=== PATIENT | female | born 1995 | race African-American/Black ===

== ENCOUNTER 2021-05-10 20:46 | Emergency (ER) | payer OTHER, SELFPAY ==
--- NOTE | ~2021-05-10 | US_ITS ---
EXAMINATION: US OB <= 14 weeks fetus DATE: 05/11/2021 00:33 INDICATION: Vaginal bleeding during first trimester . TECHNIQUE: Real-time pelvic ultrasound utilizing transabdominal probe was performed. The johann sumner radiologist was not present for the study. COMPARISON: None. FINDINGS: The uterus measures 10.8 x 8.5 x 7.5 cm. There is an intrauterine gestational sac. A yolk sac and fe carrington pole are identified. The crown rump length measures 3.7 cm, which correlates with an estimated ge stational age of 10 weeks and 4 days. heart motion is identified measuring 163 beats per minute (bpm) by M-mode Doppler. The right ovary measures 2.7 x 2.6 x 1.9 cm. The left ovary measures 2.7 x 2.2 x 1.7 cm. Stricture fl ow identified in both ovaries on color Doppler. There is no free fluid in the pelvis. IMPRESSION: 1. Single living fetus with heart of 163 bpm. 2. Gestational age by ultrasound of 10 weeks 4 day(s) +/- 7 day(s) with ultrasound estimated date of delivery (JONE) of 12/03/2021. Reviewed, dictated and finalized at location A. EMS PROGRAMMER ANALYST IMPRESSION: 1. Single living fetus with heart of 163 bpm. 2. Gestational age by ultrasound of 10 weeks 4 day(s) +/- 7 day(s) with ultras ound estimated date of delivery (JONE) of 12/03/2021.
[2021-05-10 21:07] VITALS: BP 111/64; PULSE 83; RESP 16; TEMP 36.1; O2SAT 100
--- NOTE | 2021-05-10 22:57 | ED.PREGNANCY ---
HPI - General Chief complaint: Vaginal Bleeding Stated complaint: vaginal bleeding, 10 weeks Time Seen by Provider: 05/10/21 22:37 Source: patient History of Present Illness HPI Narrative: Patient is 2 elective abortions approximately 10 weeks presents with vaginal bleeding. Reports her symptoms started this evening she thinks she may have passed clots but she is unsure. Her symptoms are associated with abdominal cramping she was concerned so she came to the ER for evaluation denies any nausea vomiting, diarrhea, urinary symptoms, lightheadedness, dizziness Review of Systems Review of Systems: CONSTITUTIONAL: Denies fever, chills, or sweats. EYES: Denies visual changes, redness, or discharge. ENT: Denies rhinorrhea, congestion, sore throat, or otalgia. CARDIOVASCULAR: Denies chest pain, palpitations, or edema. RESPIRATORY: Denies cough or dyspnea. GASTROINTESTINAL: Denies abdominal pain, nausea, vomiting, or diarrhea. GENITOURINARY: Denies dysuria or hematuria. SKIN: Denies rash or itching. MUSCULOSKELETAL: Denies back pain, joint pain, or myalgia. NEUROLOGIC: Denies headache, numbness, dizziness, or weakness. PSYCHIATRIC: Denies anxiety or depression. All systems reviewed & are unremarkable except as noted in HPI and below Exam Narrative: GENERAL: Well-appearing, well-nourished, and in no acute distress. HEAD: Normocephalic, atraumatic. EYES: PERRLA and EOMI. ENT: Nares clear, no rhinorrhea or epistaxis. Mucous membranes moist. NECK: Supple. No masses. No JVD ABDOMEN: Soft, nontender, nondistended, normal active bowel sounds. EXTREMITIES: Normal range of motion. No edema. SKIN: Warm, dry, no rash. NEURO: No focal deficits. Alert and oriented x3. PSYCH: Normal mood and affect. Course Reevaluation(s) Reevaluation #1: Patient resting comfortably results and plan reviewed with patient. Patient is comfortable outpatient plan. Date: 05/11/21 Time: 02:27 Vital Signs Vital signs: Vital Signs Temperature 36.1 C L 05/10/21 21:07 Pulse Rate 83 05/10/21 21:07 Respiratory Rate 16 05/10/21 21:07 Blood Pressure 111/64 05/10/21 21:07 Pulse Oximetry 100 05/10/21 21:07 Temperature 36.1 C L 05/10/21 21:07 Pulse Rate 83 05/11/21 02:34 Respiratory Rate 17 05/11/21 02:34 Blood Pressure 110/89 05/11/21 02:34 Pulse Oximetry 99 05/11/21 02:34 MDM - OB/Uterine Contractions MDM Narrative Medical decision making narrative: H&P as above, vss, pt looks clinically well, exam with nonacute abdomen, labs blood type of O positive otherwise reassuring, img with single IUP heart rate of 163, additional labs/img considered, symptomatic relief available as needed, on reevaluation pt continues to looks clinically well. Suspect threatened , dns significant hemorrhage. plan to tx/monitor as op w/ OB f/u findings/plan discussed with pt, pt agree/comfortable with plan, return precautions given Lab Data Result diagrams: 05/10/21 22:59 05/10/21 23:00 Labs: Lab Results 05/10/21 05/10/21 05/10/21 Range/Units 22:59 22:59 22:59 WBC 7.0 (4.5-10.0) K/mm3 RBC 5.04 (4.2-5.4) M/mm3 Hgb 13.0 (12.0-15.0) g/dL Hct 41.4 (37.0-47.0) % MCV 82.1 (80-100) fl MCH 25.8 L (26-34) pg MCHC 31.4 L (32-36) g/dl RDW 13.9 (11.5-14.5) % Plt Count 258 (150-375) k/mm3 MPV 10.5 H (7.4-10.4) fl Immature Gran % (Auto) 0.1 (0-0.5) % Neut % (Auto) 51.2 (45.5-73.1) % Lymph % (Auto) 38.1 (18.3-44.2) % [place] % (Auto) 7.3 (2.6-8.5) % Eos % (Auto) 2.9 (0-4.4) % Baso % (Auto) 0.4 (0.2-1.2) % Lymph # (Auto) 2.66 (0.9-3.2) K/mm3 [place] # (Auto) 0.5 (0.1-0.6) K/mm3 Eos # (Auto) 0.2 (0-0.3) K/mm3 Baso # (Auto) 0.0 (0.0-0.1) K/mm3 Abs Immat Gran (auto) 0.01 (0.00-0.031) K/mm3 Absolute Neuts (auto) 3.6 (1.3-6.7) K/mm3 Absolute Nucleated RBC 0.0 (0.0-0.012) K/mm3 Nucleated RBC
[2021-05-10 23:19] LABS: Basophils Percent Auto 0.4 % (0.2-1.2); Eosinophils Absolute Auto 0.2 K/mm3 (0-0.3); Eosinophils Percent Auto 2.9 % (0-4.4); Hematocrit 41.4 % (37.0-47.0); Immature Granulocyte Absolute 0.01 K/mm3 (0.00-0.031); Immature Granulocyte Percent A 0.1 % (0-0.5); Lymphocytes Absolute Auto 2.66 K/mm3 (0.9-3.2); Lymphocytes Percent Auto 38.1 % (18.3-44.2); Mean Corpuscular HGB Conc 31.4 g/dl (32-36); Mean Corpuscular Hemoglobin 25.8 pg (26-34); Mean Corpuscular Volume 82.1 fl (80-100); Mean Platelet Volume 10.5 fl (7.4-10.4); Monocytes Absolute Auto 0.5 K/mm3 (0.1-0.6); Monocytes Percent Auto 7.3 % (2.6-8.5); Neutrophils Absolute Auto 3.6 K/mm3 (1.3-6.7); Neutrophils Percent Auto 51.2 % (45.5-73.1); Platelet Count Result 258 k/mm3 (150-375); Red Blood Count 5.04 M/mm3 (4.2-5.4); Red Cell Distribution Width 13.9 % (11.5-14.5)
[2021-05-10 23:25] LABS: Add Urine Microscopic? YES; Appearance Urine Clear (Clear); Bilirubin Urine Negative (Negative); Blood Urine 2+ (Negative); Color Urine Yellow (Yellow); Glucose Urine UA Negative (Negative); Ketones Urine Negative (Negative); Leukocyte Esterase Ur Negative LEU/UL (Negative); Mucus Urine Rare /lpf; Nitrate Urine Negative (Negative); Protein Urine Negative (Negative); RBC Urine 0-2 /hpf (0-2); Specific Grav Ur 1.015 (1.001-1.035); Squamous Epithelial Cell Urine Moderate /hpf (Few); Urobilinogen Urine Negative mg/dL (<2.0); WBC Urine 0-3 /hpf
[2021-05-10 23:30] LABS: Alanine Aminotransferase 19 U/L (4-35); Albumin Level 4.4 g/dL (3.5-5.1); Alkaline Phosphatase 47 U/L (38-126); Anion Gap 5 mmol/L (8-16); Aspartate Amino Transferase 24 U/L (14-36); Bilirubin,Total 0.1 mg/dL (0.2-1.3); Blood Urea Nitrogen 9 mg/dL (7-17); Calcium 9.9 mg/dL (8.4-10.2); Carbon Dioxide 25 mmol/L (22-30); Chloride 103 mmol/L (98-107); Estimated CRCL calculation 105 ml/min; Estimated Glomerular Filt Rate > 60; Glucose 117 mg/dL (65-110); Potassium 3.8 mmol/L (3.4-5.0); Sodium 133 mmol/L (137-145)
[2021-05-11 02:34] VITALS: BP 110/89; PULSE 83; RESP 17; O2SAT 99
== END 2021-05-11 02:37 | disposition home or self-care (01) ==
PROVIDERS: Emergency Provider Emergency Medicine
DX: O20.0 Threatened abortion (principal); Z3A.10 10 weeks gestation of pregnancy
CPT/HCPCS: 36415; 76801; 80053; 81001; 84702; 85025; 85461; 99284